=== PATIENT | female | born 1965 | race Caucasian/White ===

== ENCOUNTER 2022-09-12 13:57 | Emergency (ER) | payer MEDICAID ==
[~2022-09-12] VITALS: Ht 160 cm; Wt 68.0 kg
--- NOTE | 2022-09-12 14:09 | NUR ---
Tylenol 1,000mg (x2 tablets) administered and awaiting effect.
[2022-09-12] MEDS ORDERED: ACETAMINOPHEN ES 500 MG TABLET ONE (14:11)
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
[2022-09-12] MEDS ORDERED: ACETAMINOPHEN ES 500 MG TABLET PO ONE (14:15)
--- NOTE | 2022-09-12 14:24 | NUR ---
1) Patient awaiting CT Head. 2) Lights dimmed to reduce stimulation and help alleviate headache.
[2022-09-12 15:03] VITALS: BP 129/76
--- NOTE | 2022-09-12 15:04 | NUR ---
DISCHARGE SUMMARY: 1) Less distress - than on admission. 2) Discharge paperwork signed and copies provided. 3) Reassured to see PC if no changes or if increased headache - return to ER. 4) Clinically stable on discharge.
== END 2022-09-12 15:06 | disposition home or self-care (01) ==
LOC: ER 13:57
DX: S09.90XA Unspecified injury of head, initial encounter (principal); V79.88XA Bus occupant (driver) (passenger) injured in other specified transport accidents, initial encounter; Y92.410 Unspecified street and highway as the place of occurrence of the external cause; R40.2362 Coma scale, best motor response, obeys commands, at arrival to emergency department; R40.2142 Coma scale, eyes open, spontaneous, at arrival to emergency department; R40.2252 Coma scale, best verbal response, oriented, at arrival to emergency department; Z88.0 Allergy status to penicillin
CPT/HCPCS: 70450; A4663; A9150